=== PATIENT | female | born 1985 | race Caucasian/White ===

== ENCOUNTER → 2020-10-18 | Outpatient (CLI) | payer OTHER ==
[~2020-10-18] MED LIST: NEURONTIN300 MG PO
== END | disposition home or self-care (01) ==
LOC: PRENATAL 14:15
PROVIDERS: ATTEND Obstetrics & Gynecology Maternal & Fetal Medicine
DX: Z36.89 Encounter for other specified antenatal screening (principal); O09.511 Supervision of elderly primigravida, first trimester; O36.80X1 Pregnancy with inconclusive fetal viability, fetus 1; Z3A.15 15 weeks gestation of pregnancy

== ENCOUNTER → 2020-11-28 | Outpatient (CLI) | payer OTHER | END | disposition home or self-care (01) | LOC: PRENATAL 07:59 | PROVIDERS: ATTEND Obstetrics & Gynecology Maternal & Fetal Medicine | DX: O35.0XX1 Maternal care for (suspected) central nervous system malformation in fetus, fetus 1 (principal); O35.3XX1 Maternal care for (suspected) damage to fetus from viral disease in mother, fetus 1; O98.512 Other viral diseases complicating pregnancy, second trimester; O09.512 Supervision of elderly primigravida, second trimester; Z36.89 Encounter for other specified antenatal screening; Z3A.21 21 weeks gestation of pregnancy ==

== ENCOUNTER 2021-03-06 08:00 | Outpatient (CLI) | payer OTHER | END 2021-03-06 08:30 | disposition home or self-care (01) | LOC: PPH VACUNA 08:00 | DX: Z23 Encounter for immunization (principal) ==

== ENCOUNTER 2021-03-06 08:42 | Outpatient (CLI) | payer OTHER | END 2021-03-06 09:42 | disposition home or self-care (01) | LOC: PRENATAL 08:42 | PROVIDERS: ATTEND Obstetrics & Gynecology Maternal & Fetal Medicine | DX: O26.843 Uterine size-date discrepancy, third trimester (principal); O36.8131 Decreased fetal movements, third trimester, fetus 1; O09.513 Supervision of elderly primigravida, third trimester; Z36.89 Encounter for other specified antenatal screening; Z3A.35 35 weeks gestation of pregnancy ==

== ENCOUNTER 2021-03-28 08:00 | Outpatient (CLI) | payer OTHER | END 2021-03-28 08:30 | disposition home or self-care (01) | LOC: PPH VACUNA 08:00 | PROVIDERS: ATTEND Emergency Medicine Pediatric Emergency Medicine | DX: Z23 Encounter for immunization (principal) ==